=== PATIENT | male | born 1950 | race Caucasian/White ===

== ENCOUNTER 2018-10-17 14:16 | Emergency (ER) | payer MEDICARE, BC ==
[2018-10-17] MEDS ORDERED: Lidocaine 2% EPI 1:200000 MPF* 10 ML VIAL INJ ONE (14:33)
[2018-10-17] MEDS ORDERED: Bupivacaine 0.5% W/EPI SDV* 10 ML VIAL INJ ONE (14:33)
[2018-10-17] MEDS ORDERED: Lidocaine 2% EPI 1:200000 MPF*10-20 ML VIAL ONE ×2 (14:37→15:00)
--- NOTE | 2018-10-17 14:37 | ED ---
Upper Extremity Pain - HPI Summary HPI Summary: A 68 y/o male presents to [facility] with a chief complaint of cutting the top of his right pointer finger with a jointer. The patient reports some pain in his right pointer finger, rating his pain as a 7/10 in severity. Bleeding is controlled. The patient is unsure of his last tetanus shot. - History of Current Complaint Chief Complaint: EDLacSutureRecheck Stated Complaint: "I CUT MY FINGER OFF" PER PT Time Seen by Provider: 10/17/18 14:29 Hx Obtained From: Patient Mechanism Of Injury: Other - cut with a boat joiner helper Onset/Duration: Started Minutes Ago, Still Present Timing: Constant, Lasting Minutes Severity Initially: Severe Severity Currently: Severe Pain Location: Finger Character: Unable to Describe Aggravating Factor(s): Nothing Alleviating Factor(s): Nothing Associated Signs & Symptoms: Positive: Other. Negative: Fever - Allergies/Home Medications Allergies/Adverse Reactions: Allergies Allergy/AdvReac Type Severity Reaction Status Date / Time No Known Allergies Allergy Verified 10/17/18 14:21 PMH/Surg Hx/FS Hx/Imm Hx Cardiovascular History: Denies: Hx Pacemaker/ICD Sensory History: Denies: Hx Deafness, Hx Hearing Aid EENT History: Denies: Hx Deafness Psychiatric History: Denies: Hx Panic Disorder - Surgical History Surgery Procedure, Year, and Place: RT shoulder 1970 Infectious Disease History: No Infectious Disease History: Denies: Traveled Outside the [place] in Last 30 Days - Family History Known Family History: Negative: Blood Disorder - Social History Alcohol Use: Daily Substance Use Type: Reports: None Review of Systems Negative: Fever Positive: Other - positive: laceration tip of right pointer finger All Other Systems Reviewed And Are Negative: Yes Physical Exam - Summary Physical Exam Summary: Appearance: Well-appearing, Well-nourished, lying in bed comfortably Skin: Warm, dry, no obvious rash Eyes: sclera anicteric, no conjunctival pallor ENT: mucous membranes moist, pharynx appears normal Neck: Supple, nontender Respiratory: Clear to auscultation, no signs of respiratory distress Cardiovascular: Normal S1, S2. No murmurs. Normal distal pulses in tibial and radial bilaterally. Abdomen: Soft, nontender, normal active bowel sounds present Musculoskeletal: Right index finger most of pad emulsed with some oozing and bleeding but no bone is visible. Strength/ROM Intact Neurological: A&Ox3, awake and alert, mentation is normal, speech is fluent and appropriate Psychiatric: affect is normal, does not appear anxious or depressed Triage Information Reviewed: Yes Vital Signs On Initial Exam: Initial Vitals Temp Pulse Resp BP Pulse Ox 96.8 F 71 16 144/80 98 10/17/18 14:18 10/17/18 14:18 10/17/18 14:18 10/17/18 14:18 10/17/18 14:18 Vital Signs Reviewed: Yes Diagnostics - Vital Signs Vital Signs Temp Pulse Resp BP Pulse Ox 10/17/18 14:18 96.8 F 71 16 144/80 98 - Laboratory Lab Statement: Any lab studies that have been ordered have been reviewed, and results considered in the medical decision making process. - Radiology finger x-ray Radiology Interpretation Completed By: Radiologist Summary of Radiographic Findings: COMMINUTED FRACTURE OF THE TUFT OF THE DISTAL PHALANX OF THE SECOND DIGIT. ED physician has reviewed this imaging report. Course/Dx - Course Course Of Treatment: A 68 y/o male presents to [facility] with a chief complaint of cutting the top of his right pointer finger with a jointer. The physical exam revealed Right index finger most of pad emulsed with some oozing and bleeding but no bone is visible. In the ED course the patient was given Xylocaine and Marcaine INJ. Finger x-ray impression: COMMINUTED FRACTURE OF THE TUFT OF THE DISTAL PHALANX OF THE SECOND DIGIT. The patient will be discharged with prescriptions for Percocet and Keflex and follow up with Dr. Casper in two days. The patient is agreeable with this plan. - Diagnoses Provider Diagnoses: Finger laceration Discharge - Sign-Out/Discharge Documenting (check all that apply): Patient Departure - DC Patient Received Moderate/Deep Sedation with Procedure: No - Discharge Plan Condition: Good Disposition: HOME Prescriptions: Cephalexin CAP* [Keflex CAP*] 500 mg PO QID #20 cap oxyCODONE/Acetamin 5/325 MG* [Percocet 5/325 TAB*] 1 tab PO Q4H PRN #10 tab MDD 4 PRN Reason: Pain Patient Education Materials: Finger Laceration (ED) Referrals: Harpal Casper MD [Medical Doctor] - Additional Instructions: Dr. Casper would like to see you at his [place] office on Monday. That office is at [address] [place] [address], the phone number there is , if you call there today and tell the staff he wanted to see you Monday they will give you a time to come in. In the meantime leave the present dressing in place, he will take it down when he sees you and after he sees the wound will discuss the treatment options. I have prescribed some pain killers if needed, though tylenol or motrin may be effective enough. Since the wound is quite deep and involves some of the bone, I have also prescribed antibiotics to prevent infection. - Billing Disposition and Condition Condition: GOOD Disposition: Home - Attestation Statements Document Initiated by Emy: Yes Documenting Scribe: Ventura Contreras Provider For Whom Emy is Documenting (Include Credential): Julio Sinclair MD Scribe Attestation: I, Ventura Contreras, scribed for Julio Sinclair MD on 10/19/18 at 0935. Scribe Documentation Reviewed: Yes Provider Attestation: The documentation as recorded by the Ventura cook accurately reflects the service I personally performed and the decisions made by me, Julio Sinclair MD Status of Scribtrav Document: Viewed
[2018-10-17] MEDS ORDERED: Bupivacaine 0.5% W/EPI SDV* 30 ML VIAL ONE ×2 (14:38→15:00)
[2018-10-17] MEDS ORDERED: Cephalexin CAP* 500 MG PO ONE (14:54)
[2018-10-17 15:28] VITALS: BP 120/81
== END 2018-10-17 15:29 | disposition home or self-care (01) ==
LOC: ED 14:16
DX: S62.630A Displaced fracture of distal phalanx of right index finger, initial encounter for closed fracture (principal); S61.210A Laceration without foreign body of right index finger without damage to nail, initial encounter; W45.8XXA Other foreign body or object entering through skin, initial encounter; Y92.9 Unspecified place or not applicable
CPT/HCPCS: 73140; 96374; 96375; 99282; A9270-GY

== ENCOUNTER 2018-10-23 12:39 | Day surgery (SDC) | payer MEDICARE, BC ==
--- NOTE | 2018-10-18 14:08 | HP ---
PREOPERATIVE HISTORY AND PHYSICAL: DATE OF SURGERY/ADMISSION: 10/23/18 DATE OF OFFICE VISIT/ENCOUNTER: 10/18/18 ATTENDING SURGEON: Vidya Moore MD* (dictated by RIVER Blankenship). PROCEDURE: Right index finger V-Y advancement flap. 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 He injured his right index finger with a insulation sprayer on 10/17/18. He cut the tip of his finger off. He was seen at [facility] and had some x- rays, which showed fracture of the tuft of the distal phalanx and showed the volar skin defect. He was seen in the emergency room where he had the wound irrigated and dressed. He was placed on Keflex and he was prescribed oxycodone for pain control but has not been using it because he has not needed it. He has been evaluated by Dr. Moore and she is recommending surgical intervention at this time in the form a V-Y advancement flap. The patient has consented to proceed. PAST MEDICAL HISTORY: 1. Asthma. 2. History of heart palpitations that were evaluated 5 years ago and found to be non-concerning. 3. BPH. PAST SURGICAL HISTORY: Right shoulder. CURRENT MEDICATIONS: 1. Fish oil Ultra 1000 mg 1 tab twice a day. 2. Flovent inhaler 2 puffs twice a day p.r.n. 3. Multivitamin 1 daily. 4. ProAir inhaler 2 puffs q.4 hours p.r.n. 5. Saw palmetto 450 mg twice a day. 6. Valerian Root 500 mg 1 tab in the evening. 7. Viagra 50 mg 1 tablet p.r.n. ALLERGIES: No known drug allergies. FAMILY MEDICAL HISTORY: Heart disease. SOCIAL HISTORY: The patient is employed as a fatima. He denies tobacco use and recreational drug use. He drinks alcohol on a regular basis. He reports he has wine or beer daily. REVIEW OF SYSTEMS: Negative for general, cephalic, cardiovascular, respiratory , GI, , other musculoskeletal, other integumentary, endocrine, neurologic, and hematologic symptoms. Infectious Disease: Negative for MRSA, hepatitis C, HIV. PHYSICAL EXAM: GENERAL: Well-developed, well-nourished 68-year-old male in no acute distress. VITAL SIGNS: Height 6 feet 2 inches, weight 220 pounds, pulse rate 66, blood pressure 120/80. HEENT: Normocephalic, atraumatic. Pupils are equal, round, and reactive to light and accommodation. Extraocular movements are intact. Throat is clear. NECK: Supple. No palpable lymph nodes. PULMONARY: Lungs are clear to auscultation bilaterally. No wheezes, rales, or rhonchi. CARDIOVASCULAR: Regular rate and rhythm. S1, S2. No murmurs, rubs, or gallops. No edema. ABDOMEN: Positive bowel sounds. Soft, nontender. MUSCULOSKELETAL: On exam of his right hand, he has a laceration of the pad of his index finger and the distal third is missing. There is a slight laceration across the finger nail. He has active flexion and extension at the DIP joint. Skin that is remaining has decreased sensation, which might be due to the digital block that he received in the emergency room on the day of injury. The wound is clean. There is no sign of infection. NEUROLOGICAL: Alert and oriented x3. Cranial nerves II through XII are intact. Sensation is intact to light touch. ASSESSMENT: Right index finger laceration. PLAN: The patient is scheduled to undergo a right index finger V-Y advancement flap with Dr. Moore on 10/23/18. He will return to the office in 10 days postop for followup and suture removal. He has a supply of Percocet that was prescribed by the emergency room and that will be refilled when and if needed postoperatively. RIVER BLANKENSHIP [id number]/[facility] #: [id number] [facility]ALTH[facility]ir[facility]
[~2018-10-23 12:39] MED LIST: Buffered Lidocaine 1% SYRIN* 1 ML/SYRINGE INTRADERM ONE; Dexamethasone IV* 4 MG/ML 1 ML (4 MG) IV SLOW PU ONE; DiMENhydriNATE IV* 50 MG/ML VIAL IV PUSH PRN; Famotidine IV* 10 MG/ML 2 ML (20 mg) IV ONE; HYDROcodone/ACETAMIN 5-325 MG* 1 TAB PO PRN; Ketorolac INJ* 30 MG/ML 1 ML VIAL IV PRN; Lactated Ringers 1000 ML Bag* 1,000 ML IV SCH; Naloxone* 0.4 MG/ML 1 ML VIAL IV PRN; fentaNYL* 50 MCG/ML 2 ML VIAL (100 MCG VIAL) IV PRN; oxyCODONE/Acetamin 5/325 MG* TAB PO PRN
[2018-10-23] MEDS ORDERED: Dexamethasone IV* 4 MG/ML 1 ML (4 MG) ONE (12:50)
[2018-10-23] MEDS ORDERED: Famotidine IV* 10 MG/ML 2 ML (20 mg) ONE (12:50)
[2018-10-23] MEDS ORDERED: Midazolam* 1 MG/ML 2 ML VIAL (2 MG) ONE ×2 (13:48→14:28)
[2018-10-23] MEDS ORDERED: fentaNYL* 50 MCG/ML 2 ML VIAL (100 MCG VIAL) ONE (13:48)
[2018-10-23] MEDS ORDERED: Propofol* 10 MG/ML 20 ML BTL ONE (13:49)
[2018-10-23] MEDS ORDERED: Lidocaine 2% PF * 5 ML VIAL ONE (13:49)
[2018-10-23] MEDS ORDERED: Lidocaine 1% INJ* 10 MG/ML 30 ML SDV ONE (14:02)
[2018-10-23 15:29] VITALS: BP 120/75
--- NOTE | 2018-10-23 20:03 | OP ---
DATE OF OPERATION: 10/23/18 [facility] DATE OF : 54 SURGEON: Vidya Moore MD MD PEDIATRIC ALLERGIST: RIVER Blankenship ANESTHESIA: Local MAC. PRE-OP DIAGNOSIS: Partial amputation of the right index finger. POST-OP DIAGNOSIS: Partial amputation of the right index finger. OPERATIVE PROCEDURE: V-Y advancement flap for the right index finger. INDICATIONS FOR PROCEDURE: Peggy Flores is a 68-year-old male who injured his right index finger, suffered a partial amputation of the pad of his index finger. There was no fracture. He presents for V-Y advancement flap. ESTIMATED BLOOD LOSS: Zero. TOURNIQUET TIME: About 15 minutes. DESCRIPTION OF PROCEDURE: The patient was brought to the operating room, was given a sedation anesthetic, and a digital block with 10 cc of 1% plain lidocaine. The skin of his right hand and forearm was prepped and draped in the usual sterile fashion. The finger was exsanguinated with the Tourni-Cot. The necrotic tissue was debrided and the wound was irrigated. A V-shaped flap was incised and it was advanced distally and closed in Y fashion. We were able to completely cover the end of the finger with an additional skin flap that was still viable. This was sutured to the finger-nail, neither the nail nor the bone was debrided. The wound was dressed with Xeroform, 4x4, Webril, and AlumaFoam splint. The patient tolerated the procedure well and was brought to the recovery room in good condition. [id number]/[facility] #: [id number] MTDD
== END 2018-10-23 15:25 | disposition home or self-care (01) ==
LOC: OREAST 12:39
PROVIDERS: ATTEND Orthopaedic Surgery
DX: S61.210A Laceration without foreign body of right index finger without damage to nail, initial encounter (principal); W27.8XXA Contact with other nonpowered hand tool, initial encounter; Y92.9 Unspecified place or not applicable; J45.909 Unspecified asthma, uncomplicated; R00.2 Palpitations
CPT/HCPCS: J1100; J2250; J2704; J3010

== ENCOUNTER 2018-11-07 11:11 | Day surgery (SDC) | payer MEDICARE, BC ==
[~2018-11-07 11:11] MED LIST changes: -Dexamethasone IV* 4 MG/ML 1 ML (4 MG) IV SLOW PU ONE; +Dexamethasone TAB* 4 MG PO ONE; -HYDROcodone/ACETAMIN 5-325 MG* 1 TAB PO PRN; -Ketorolac INJ* 30 MG/ML 1 ML VIAL IV PRN; +Morphine 4 MG/ML VIAL (1 ml) 4 MG/ML VIAL IV PRN; +Ondansetron INJ* 2 MG/ML VIAL ONE; +PROCHLORPERAZINE INJ 5 MG/ML 2 ML VIAL IV PRN
[2018-11-07] MEDS ORDERED: Buffered Lidocaine 1% SYRIN* 1 ML/SYRINGE INTRADERM ONE (11:30)
[2018-11-07] MEDS ORDERED: Famotidine IV* 10 MG/ML 2 ML (20 mg) ONE (11:30)
[2018-11-07] MEDS ORDERED: Ondansetron ODT TAB* 4 MG ONE (11:30)
[2018-11-07] MEDS ORDERED: Dexamethasone TAB* 4 MG ONE (11:30)
[2018-11-07] MEDS ORDERED: Midazolam* 1 MG/ML 5 ML VIAL (5 MG) ONE (11:39)
[2018-11-07] MEDS ORDERED: KETAMINE HCL* 50 MG/ML 10 ML VIAL ONE (11:39)
[2018-11-07] MEDS ORDERED: fentaNYL* 50 MCG/ML 2 ML VIAL (100 MCG VIAL) ONE ×2 (11:39→13:48)
[2018-11-07] MEDS ORDERED: Metoprolol Tartrate IV* 1 MG/ML 5 ML VIAL ONE (11:46)
[2018-11-07] MEDS ORDERED: Lidocaine 1% INJ* 10 MG/ML 30 ML SDV ONE (12:10)
[2018-11-07] MEDS ORDERED: Propofol* 10 MG/ML 20 ML BTL ONE (13:08)
[2018-11-07] MEDS ORDERED: Ibuprofen TAB* 600 MG ONE (13:42)
[2018-11-07] MEDS ORDERED: oxyCODONE/Acetamin 5/325 MG* TAB ONE (13:48)
[2018-11-07] MEDS ORDERED: ceFAZolin 2 GM PREMIX in ORs 2 GM/50 ML BAG ONE (13:48)
[2018-11-07 14:45] VITALS: BP 135/77
--- NOTE | 2018-11-07 16:30 | HP ---
Amended report to enter cosigning physician. PREOPERATIVE HISTORY AND PHYSICAL: DATE OF ADMISSION/SURGERY: 11/07/18 DATE OF OFFICE VISIT/ENCOUNTER: 11/07/18 ATTENDING SURGEON: Vidya Moore MD* (dictated by RIVER Blankenship). PROCEDURE: Incision and drainage. HISTORY OF PRESENT ILLNESS: This is a 68-year-old male who underwent a right index finger V-Y advancement flap with Dr. Moore on 10/23/18. At his first postoperative followup visit today, he was found to have infection in his finger and questionable viability of advancement flap. He was scheduled to go to OR later today for incision and drainage of the right index finger. PAST MEDICAL HISTORY: 1. Asthma. 2. History of heart palpitations that were evaluated 5 years ago and found to be nonconcerning. 3. Benign prostatic hypertrophy. PAST SURGICAL HISTORY: Right shoulder index finger V-Y advancement flap. CURRENT MEDICATIONS: 1. Fish oil Ultra 1000 mg 1 tab twice a day. 2. Flovent inhaler 2 puffs twice a day p.r.n. 3. Multivitamin 1 daily. 4. ProAir inhaler 2 puffs q.4 hours p.r.n. 5. Saw palmetto 450 mg twice a day. 6. Valerian Root 500 mg 1 tab in the evening. 7. Viagra 50 mg 1 tablet p.r.n. ALLERGIES: No known drug allergies. FAMILY MEDICAL HISTORY: Heart disease. SOCIAL HISTORY: The patient is employed as a fatima. He denies tobacco use and recreational drug use. He drinks alcohol on a regular occasion. He reports he has wine or beer daily. REVIEW OF SYSTEMS: Negative for general, cephalic, cardiovascular, respiratory , GI, , other musculoskeletal, other integumentary, endocrine, neurologic, and hematologic symptoms. Infectious Disease: Negative for MRSA, hepatitis C, HIV. PHYSICAL EXAM: GENERAL: Well-developed, well-nourished 68-year-old male in no acute distress. VITAL SIGNS: Height 6 feet 2 inches, weight 222 pounds, pulse rate 68, blood pressure 122/60. HEENT: Normocephalic, atraumatic. Pupils are equal, round, and reactive to light and accommodation. Extraocular movements are intact. Throat is clear. NECK: Supple. No palpable lymph nodes. PULMONARY: Lungs are clear to auscultation bilaterally. No wheezes, rales, or rhonchi. CARDIOVASCULAR: Regular rate and rhythm. S1, S2. No murmurs, rubs, or gallops. No edema. ABDOMEN: Positive bowel sounds. Soft, nontender. MUSCULOSKELETAL: On exam of his right hand and index finger, he has moderate swelling along the length of the finger with erythema proximal to the advancement flap. There is active bloody and purulent drainage, especially with compression of the finger. Tenderness to palpation along the length of the finger with decreased sensation at the tip. Skin at the tip of the finger appears to be necrotic. IMPRESSION: Right index finger, status post V-Y advancement flap with infection and necrosis. PLAN: The patient is scheduled to return to the OR later today for incision and drainage of the right index finger. We will plan to see him back in the office few days after surgery for followup. RIVER BLANKENSHIP [id number]/[facility] #: [id number] ENRIQUE
--- NOTE | 2018-11-08 03:45 | OP ---
DATE OF OPERATION: 11/07/18 [facility] DATE OF : 54. SURGEON: Vidya Moore MD. SPORTS COORDINATOR: Janis Turner. ANESTHESIA: General. PRE-OP DIAGNOSIS: Postop wound infection of the right index finger. POST-OP DIAGNOSIS: Postop wound infection of the right index finger. OPERATIVE PROCEDURE: Incision and drainage of the right index finger. ESTIMATED BLOOD LOSS: Zero. TOURNIQUET TIME: About 20 minutes. INDICATIONS FOR PROCEDURE: Mark is a 68-year-old male who suffered a table saw injury of his right index finger. He had a V-Y advancement flap and in the office today for his follow up appointment, was noted to have purulent drainage. He presents for I and D of the right index finger. DESCRIPTION OF PROCEDURE: The patient was brought to the operating room, was given a general anesthetic and placed in the supine position on the operating table with a tourniquet around his right forearm. The skin of his right hand and forearm was prepped and draped in the usual sterile fashion. The hand and forearm were elevated and then the tourniquet was elevated to 250 mmHg. A small diagonal incision was made over the PIP joint. We dissected down to the flexor tendon sheath, which did not appear to have any purulent drainage. There was some partial-thickness skin excoriation and this was debrided. All of the remaining sutures were removed. The small area at the tip of the finger of necrotic tissue was debrided and then the finger was copiously irrigated with 3 L of saline. The incision was loosely closed with a single simple suture of 4-0 nylon. The wound was dressed with Xeroform, 4x4, Webril, and Coban. The patient tolerated the procedure well and was brought to the recovery room in good condition. [id number]/[facility] #: [id number] [facility]
== END 2018-11-07 15:23 | disposition home or self-care (01) ==
LOC: OR 11:11
PROVIDERS: ATTEND Orthopaedic Surgery
DX: T81.41XA Infection following a procedure, superficial incisional surgical site, initial encounter (principal); L08.89 Other specified local infections of the skin and subcutaneous tissue; S61.210D Laceration without foreign body of right index finger without damage to nail, subsequent encounter; J45.909 Unspecified asthma, uncomplicated; N40.0 Benign prostatic hyperplasia without lower urinary tract symptoms; X58.XXXD Exposure to other specified factors, subsequent encounter
CPT/HCPCS: 87070; 87073; 87077; 87186; 87205; A9270-GY; J0690; J2250; J2704; J3010; J3490; J8540